=== PATIENT | female | born 1995 | race Hispanic/Latino ===

== ENCOUNTER → 2018-10-07 | Outpatient (REF) | payer OTHER ==
[~2018-10-07] MED LIST: AMOX/K CLAV500 MG PO; CLARITIN10 M1 PO; COLACE100 MG PO; FERROUS SULF325 M1 PO; MIRENA IU; NAPROSYN500 MG PO; PRE-NATAL PO; PRENATAL1 TAB
[2018-10-07 08:14] LABS: HEMATOCRIT 40.1 % (37.0-47.0); HEMOGLOBIN 13.7 g/dl (12.0-16.0); IMMATURE GRANULOCYTES 0.3 % (0.0-5.0); MEAN CORPUSCULAR HGB 31.1 pG CALC (26.0-32.0); MEAN CORPUSCULAR HGB CONC 34.2 g/L CALC (32.0-36.0); NEUT# 3.96 thou/uL (2.00-7.15); RED BLOOD COUNT 4.41 mill/uL (4.20-5.60); RED CELL DISTRI WIDTH 12.4 % (11.5-15.5)
[2018-10-07 08:15] LABS: MEAN CELL VOLUME 90.9 fL CALC (80.0-100.0)
[2018-10-07 08:54] LABS: BILIRUBIN, TOTAL 0.6 mg/dL (0.0-1.4); BUN 19 mg/dL (7-17); BUN/CREATININE RATIO 33 (12-20 (CALC)); CALCULATED LDLCHOLESTEROL 104 mg/dL (62-129 (CALC)); CHLORIDE 104 mmol/l (95-108); CHOLESTEROL HDL RATIO 3.5 (<4.4 (CALC)); CREATININE 0.6 mg/dL (0.5-1.0); GFR > 60 ML/MIN (>=60 (CALC)); GFR FOR AFR.AMER. > 60 ML/MIN (>=60 (CALC)); HDL CHOLESTEROL 51 mg/dL (>=40); POTASSIUM 4.4 mmol/l (3.5-5.1); SGOT/AST 41 u/l (14-36); SODIUM 140 mmol/l (137-146); TOTAL CHOLESTEROL 182 mg/dl (0-199); TOTAL PROTEIN 7.8 g/dL (6.3-8.2); TOTAL TRIGLYCERIDES 133 mg/dl (30-149); VLDL CHOLESTROL 27 mg/dl (2-29 (CALC))
[2018-10-07 09:20] LABS: ALBUMIN 4.6 g/dL (3.2-5.0); ALKALINE PHOSPHATASE 61 u/l (38-126); ANION GAP 14 (6-22 (CALC)); CARBON DIOXIDE 26 mmol/l (22-30)
[2018-10-07 09:22] LABS: TSH, 3RD GENERATION 2.31 uIU/mL (0.47 - 4.68)
== END | disposition home or self-care (01) | DRG 951 ==
LOC: LAB 07:23
PROVIDERS: ATTEND Family Medicine
DX: Z00.00 Encounter for general adult medical examination without abnormal findings (principal)

== ENCOUNTER → 2018-11-01 | Outpatient (REF) ==
[2018-11-01 10:56] LABS: CHOLESTEROL HDL RATIO 3.6 (<4.4 (CALC))
== END | disposition home or self-care (01) | DRG 951 ==
LOC: LAB 10:00
PROVIDERS: ATTEND Family Medicine
DX: Z02.6 Encounter for examination for insurance purposes (principal)